=== PATIENT | male | born 2005 | race Caucasian/White ===

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

== ENCOUNTER 2024-09-20 10:59 | Emergency (ER) | payer OTHER ==
--- NOTE | 2024-09-20 11:02 | ERPHSYRPT ---
- History of Present Illness Time Seen by Provider: 09/20/24 11:01 Source: patient, family Exam Limitations: no limitations Physician History: This is an overweight 19-year-old white male patient of Dr. Graff who presents by private vehicle secondary to suicidal thoughts that began yesterday. He states that he had a single episode of cutting of his wrist but stopped because he knew that that was not the right thing to do. He was having worsening symptoms today at work and his boss brought him to be evaluated. Patient denies a plan at this time. He has never been to the emergency room because of suicidal thoughts although he has had suicidal thoughts in the past. Patient denies headache. Patient denies chest pain. Patient denies shortness of breath. Patient denies abdominal pain. Patient has a history of depression, anxiety, hypertension and bipolar disorder. Timing/Duration: yesterday Severity of Symptoms-Max: moderate Severity of Symptoms-Current: moderate Context related to: living circumstances Associated Symptoms: anxiety, depressed, suicidal ideation, No hallucinating, No insomnia Previous symptoms: same symptoms as today, no recent treatment Allergies/Adverse Reactions: coconut Allergy (Severe, Verified 09/20/24 11:10) Swelling of Tongue and Lips Home Medications: ARIPiprazole [Aripiprazole] 10 mg PO DAILY 09/16/23 [History] Emtricitabine/Tenofov Alafenam [Descovy 200-25 mg Tablet] 1 tab PO DAILY 09/16/23 [History] Trazodone HCl 50 mg [Desyrel 50 mg] 50 mg PO HS 09/20/24 [History] Hx Tetanus, Diphtheria Vaccination/Date Given: Yes Hx Influenza Vaccination/Date Given: Yes Hx Pneumococcal Vaccination/Date Given: No Travel Risk - International Travel Have you traveled outside of the country in past 3 weeks: No - Emerging Infectious Disease Are you exhibiting symptoms associated with any current EIDs: No - Past Medical History Pertinent Past Medical History: Yes Neurological History: Migraines ENT History: Other Cardiac History: Hypertension Respiratory History: Asthma Endocrine Medical History: Liver Disease Musculoskeletal History: No Pertinent History GI Medical History: No Pertinent History History: No Pertinent History Psycho-Social History: Depression Male Reproductive Disorders: No Pertinent History Other Medical History: SEASONAL ALLERGIES, Fatty liver on ultrasound in 2021, NASC, 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 - Past Surgical History Past Surgical History: No Neuro Surgical History: No Pertinent History Cardiac: No Pertinent History Respiratory: No Pertinent History Gastrointestinal: No Pertinent History Genitourinary: No Pertinent History Musculoskeletal: No Pertinent History Male Surgical History: No Pertinent History Significant Family History: no pertinent family hx - Social History Smoking Status: Never smoker Exposure to second hand smoke: No Drug Use: none Patient Lives Alone: No - Review of Systems Constitutional: No Symptoms Eyes: No Symptoms Ears, Nose, & Throat: No Symptoms Respiratory: No Symptoms Cardiac: No Symptoms Abdominal/Gastrointestinal: No Symptoms Genitourinary Symptoms: No Symptoms Musculoskeletal: No Symptoms Skin: No Symptoms Neurological: No Symptoms Psychological: Anxiety, Depression, Suicidal Ideations, No Homicidal Ideations, No Hallucinations Endocrine: No Symptoms Hematologic/Lymphatic: No Symptoms Immunological/Allergic: No Symptoms All Other Systems: Reviewed and Negative - Nursing Vital Signs Nursing Vital Signs: Initial Vital Signs Blood Pressure 148/94 09/20/24 11:07 O2 Sat by Pulse Oximetry 98 09/20/24 11:07 Pain Scale Pain Intensity 0 - Physical Exam General Appearance: no apparent distress, alert, anxiety, obese Eyes, Ears, Nose, Throat Exam: normal ENT inspection, moist mucous membranes Neck Exam: normal inspection, non-tender, supple, full range of motion Respiratory Exam: normal breath sounds, lungs clear, airway intact, No chest tenderness, No respiratory distress Cardiovascular Exam: regular rate/rhythm, normal heart sounds, normal peripheral pulses Gastrointestinal/Abdominal Exam: soft, normal bowel sounds, No tenderness Current Suicidality: denies suicide plan Neurological Exam: alert, 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, 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, 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, anxious, depressed affect Appearance: appropriate appearance, appropriate insight, no memory impairment Behavior/Eye Contact/Speech: alert & cooperative, cooperative, good eye contact, normal speech Thoughts/Hallucinations: normal thought pattern, no apparent hallucination Skin Exam: normal color, warm, dry SpO2 Interpretation: normal O2 Delivery: Room Air - Course Nursing assessment & vital signs reviewed: Yes Ordered Tests: Active Orders 24 hr Category Date Time Status Library Circulation Department Chief STAT Care 09/20/24 11:03 Active EKG-ER Only STAT Care 09/20/24 11:02 Active ACETAMINOPHEN Stat Lab 09/20/24 11:25 Completed CBC W DIFF Stat Lab 09/20/24 11:25 Completed CMP Stat Lab 09/20/24 11:25 Completed ETHYL ALCOHOL Stat Lab 09/20/24 11:25 Completed SALICYLATE Stat Lab 09/20/24 11:25 Completed UA W/RFX UR CULTURE Stat Lab 09/20/24 11:02 Completed Urine Triage Profile Stat Lab 09/20/24 11:03 Completed Lab/Rad Data: Laboratory Result Diagrams 09/20/24 11:25 09/20/24 11:25 Laboratory Results 09/20/24 09/20/24 09/20/24 Range/Units 11:35 11:25 11:25 WBC 8.6 (4.23-9.07) x10^3/uL RBC 5.31 (4.63-6.08) x10^6/uL Hgb 15.2 (13.7-17.5) g/dL Hct 45.4 (40.1-51.0) % MCV 85.5 (79.0-92.2) fL MCH 28.6 (25.7-32.2) pg MCHC 33.5 (32.3-36.5) g/dL RDW 13.6 (11.6-14.4) % Plt Count 314 (163-337) x10^3/uL MPV 10.5 (9.4-12.4) fL Gran % 71.0 H (34.0-67.9) % Immature Gran % (Auto) 0.6 H (0.001-0.429) % Nucleat RBC Rel Count 0.0 (0.00-0.2) % Eos # (Auto) 0.03 L (0.04-0.54) x10^3/uL Immature Gran # (Auto) 0.05 H (0.001-0.031) x10^3u/L Absolute Lymphs (auto) 1.78 (1.32-3.57) x10^3/uL Absolute Monos (auto) 0.55 (0.30-0.82) x10^3/uL Absolute Nucleated RBC 0.00 (0.00-0.012) x10^3u/L Lymphocytes % 20.8 L (21.8-53.1) % Monocytes % 6.4 (5.3-12.2) % Eosinophils % 0.4 L (0.8-7.0) % Basophils % 0.8 (0.2-1.2) % Absolute Granulocytes 6.07 H (1.78-5.38) x10^3/uL Basophils # 0.07 (0.01-0.08) x10^3/uL Sodium 141 (135-145) mmol/L Potassium 4.1 (3.5-5.1) mmol/L Chloride 107 (98-107) mmol/L Carbon Dioxide 23 (22-30) mmol/L Anion Gap 14.8 (5-15) MEQ/L BUN 13 (9-20) mg/dL Creatinine 0.90 (0.66-1.25) mg/dL Estimated GFR 125.4 ML/MIN Glucose 108 H (74-106) mg/dL Calcium 10.0 (8.4-10.2) mg/dL Total Bilirubin 0.90 (0.2-1.3) mg/dL AST 65 H (17-59) U/L ALT 88 H (0-50) U/L Alkaline Phosphatase 40 (38-126) U/L Serum Total Protein 8.8 H (6.3-8.2) g/dL Albumin 5.2 H (3.5-5.0) g/dL Urine Color (Yellow) Urine Appearance (Clear) Urine pH (4.6-8.0) Ur Specific [place] (1.005-1.030) Urine Protein (Negative) Urine Glucose (UA) (Negative) mg/dL Urine Ketones (Negative) Urine Blood (Negative) Urine Nitrite (Negative) Urine Bilirubin (Negative) Urine Urobilinogen (0.2) mg/dL Ur Leukocyte Esterase (Negative) U Hyaline Cast (Auto) (0-2) /LPF Urine Microscopic RBC (0-5) /HPF Urine Microscopic WBC (0-5) /HPF Ur Epithelial Cells (None Seen) /HPF Urine Bacteria (None Seen) /HPF Urine Culture Reflexed (NO) Salicylates < 1.0 L (2-20) mg/dL Urine Opiates Level (NEGATIVE) Ur Methadone (NEGATIVE) Acetaminophen < 10 L (10-30) ug/ml Urine Barbiturates (NEGATIVE) Ur Phencyclidine (PCP) (NEGATIVE) Urine Amphetamine (NEGATIVE) U Benzodiazepine Level (NEGATIVE) Urine Cocaine (NEGATIVE) Urine Marijuana (THC) (NEGATIVE) Ethyl Alcohol < 10 (0-10) mg/dL Influenza Type A Ag NEGATIVE (NEGATIVE) Influenza Type B Ag NEGATIVE (NEGATIVE) RSV (PCR) NEGATIVE (NEGATIVE) SARS-CoV-2 (PCR) NEGATIVE (NEGATIVE) 09/20/24 09/20/24 Range/Units 11:03 11:02 WBC (4.23-9.07) x10^3/uL RBC (4.63-6.08) x10^6/uL Hgb (13.7-17.5) g/dL Hct (40.1-51.0) % MCV (79.0-92.2) fL MCH (25.7-32.2) pg MCHC (32.3-36.5) g/dL RDW (11.6-14.4) % Plt Count (163-337) x10^3/uL MPV (9.4-12.4) fL Gran % (34.0-67.9) % Immature Gran % (Auto) (0.001-0.429) % Nucleat RBC Rel Count (0.00-0.2) % Eos # (Auto) (0.04-0.54) x10^3/uL Immature Gran # (Auto) (0.001-0.031) x10^3u/L Absolute Lymphs (auto) (1.32-3.57) x10^3/uL Absolute Monos (auto) (0.30-0.82) x10^3/uL Absolute Nucleated RBC (0.00-0.012) x10^3u/L Lymphocytes % (21.8-53.1) % Monocytes % (5.3-12.2) % Eosinophils % (0.8-7.0) % Basophils % (0.2-1.2) % Absolute Granulocytes (1.78-5.38) x10^3/uL Basophils # (0.01-0.08) x10^3/uL Sodium (135-145) mmol/L Potassium (3.5-5.1) mmol/L Chloride (98-107) mmol/L Carbon Dioxide (22-30) mmol/L Anion Gap (5-15) MEQ/L BUN (9-20) mg/dL Creatinine (0.66-1.25) mg/dL Estimated GFR ML/MIN Glucose (74-106) mg/dL Calcium (8.4-10.2) mg/dL Total Bilirubin (0.2-1.3) mg/dL AST (17-59) U/L ALT (0-50) U/L Alkaline Phosphatase (38-126) U/L Serum Total Protein (6.3-8.2) g/dL Albumin (3.5-5.0) g/dL Urine Color Dark Yellow (Yellow) Urine Appearance Clear (Clear) Urine pH 5.5 (4.6-8.0) Ur Specific [place] >=1.030 A (1.005-1.030) Urine Protein 30 (Negative) Urine Glucose (UA) Negative (Negative) mg/dL Urine Ketones Trace A (Negative) Urine Blood Negative (Negative) Urine Nitrite Negative (Negative) Urine Bilirubin Small A (Negative) Urine Urobilinogen 1.0 A (0.2) mg/dL Ur Leukocyte Esterase Negative (Negative) U Hyaline Cast (Auto) 3-5 A (0-2) /LPF Urine Microscopic RBC 0-2 (0-5) /HPF Urine Microscopic WBC 0-2 (0-5) /HPF Ur Epithelial Cells None Seen (None Seen) /HPF Urine Bacteria None Seen (None Seen) /HPF Urine Culture Reflexed NO (NO) Salicylates (2-20) mg/dL Urine Opiates Level NEGATIVE (NEGATIVE) Ur Methadone NEGATIVE (NEGATIVE) Acetaminophen (10-30) ug/ml Urine Barbiturates NEGATIVE (NEGATIVE) Ur Phencyclidine (PCP) NEGATIVE (NEGATIVE) Urine Amphetamine NEGATIVE (NEGATIVE) U Benzodiazepine Level NEGATIVE (NEGATIVE) Urine Cocaine NEGATIVE (NEGATIVE) Urine Marijuana (THC) POSITIVE A (NEGATIVE) Ethyl Alcohol (0-10) mg/dL Influenza Type A Ag (NEGATIVE) Influenza Type B Ag (NEGATIVE) RSV (PCR) (NEGATIVE) SARS-CoV-2 (PCR) (NEGATIVE) - Progress Progress: unchanged Progress Note: 09/20/24 12:04 My medical decision making and the assignment of moderate complexity to this patient's medical issue today is based on review of the patient's past medical history, review the patient's medication list, reviewed patient drug allergy list, history present illness and physical findings on examination. The workup in this patient includes salicylate level, acetaminophen level, alcohol level, urinalysis, urine drug triage, CBC, CMP, twelve-lead EKG Differential diagnosis includes but not limited to anxiety, depression, suicidal ideation 09/20/24 14:26 I interpreted the patient's laboratory data results. Based on the laboratory data results, the patient does not have any acute, emergent medical issue. The patient is admitted to [facility] after they reviewed the patient's chart and laboratory data results. Counseled pt/family regarding: lab results, diagnosis Medical Desision Making - Diagnostic Testing Diagnostic test were ordered, analyzed, and reviewed by me: Yes - Risk of complications The pt has a high risk of morbidity or mortality based on: Decision regarding hospitilization or escalation of hosp level of care - Departure Departure Disposition: Transfer Clinical Impression: Suicidal ideation Condition: Stable Critical Care Time: No Referrals: CAYLA GRAFF DO [Primary Care Provider] - Follow up/PCP as directed
[2024-09-20 11:27] VITALS: TEMP 98
[2024-09-20 11:35] LABS: Absolute Neutrophil Ct (ANC) 6.07 x10^3/uL (1.78-5.38); BASOPHIL % 0.8 % (0.2-1.2); Basophil (Absolute #) 0.07 x10^3/uL (0.01-0.08); Eosinophil % 0.4 % (0.8-7.0); Eosinophil (Absolute #) 0.03 x10^3/uL (0.04-0.54); Hematocrit 45.4 % (40.1-51.0); Hemoglobin 15.2 g/dL (13.7-17.5); IMMATURE GRAN # 0.05 x10^3u/L (0.001-0.031); IMMATURE GRAN % 0.6 % (0.001-0.429); Lymphocyte (Absolute #) 1.78 x10^3/uL (1.32-3.57); Lymphocytes % 20.8 % (21.8-53.1); Mean Cell Volume 85.5 fL (79.0-92.2); Mean Corpuscular Hemoglobin 28.6 pg (25.7-32.2); Mean Corpuscular Hgb Concent. 33.5 g/dL (32.3-36.5); Mean Platelet Volume 10.5 fL (9.4-12.4); Monocyte (Absolute #) 0.55 x10^3/uL (0.30-0.82); Monocytes % 6.4 % (5.3-12.2); Platelet Count 314 x10^3/uL (163-337); Red Blood Count 5.31 x10^6/uL (4.63-6.08); Red Cell Distribution Width 13.6 % (11.6-14.4); White Blood Count 8.6 x10^3/uL (4.23-9.07)
[2024-09-20 11:42] LABS: ACETAMINOPHEN < 10 ug/ml (10-30); ALBUMIN 5.2 g/dL (3.5-5.0); ALKALINE PHOSPHATASE 40 U/L (38-126); ANION GAP 14.8 MEQ/L (5-15); BLOOD UREA NITROGEN 13 mg/dL (9-20); CHLORIDE 107 mmol/L (98-107); Carbon Dioxide 23 mmol/L (22-30); EST GLOMERULAR FILTRATION RATE 125.4 ML/MIN; ETHYL ALCOHOL < 10 mg/dL (0-10); Glucose 108 mg/dL (74-106); Potassium 4.1 mmol/L (3.5-5.1); SALICYLATE < 1.0 mg/dL (2-20); SGOT/AST 65 U/L (17-59); SGPT/ALT 88 U/L (0-50); SODIUM 141 mmol/L (135-145); Total Protein 8.8 g/dL (6.3-8.2)
[2024-09-20 11:53] LABS: Appearance Clear (Clear); Bacteria None Seen /HPF (None Seen); Bilirubin Small (Negative); Blood Negative (Negative); Epithelial Cells None Seen /HPF (None Seen); Glucose, Urine Negative (Negative); Ketones Trace (Negative); Leukocyte Esterase Negative (Negative); Nitrite Negative (Negative); Ph 5.5 (4.6-8.0); Protein,Urine Dip 30 (Negative); RBC 0-2 /HPF (0-5); Specific Gravity >=1.030 (1.005-1.030); WBC 0-2 /HPF (0-5)
[2024-09-20 12:01] VITALS: RESP 18
[2024-09-20 12:12] LABS: Amphetamine,Urine NEGATIVE (NEGATIVE); Barbiturate,Urine NEGATIVE (NEGATIVE); Benzodiazepine,Urine NEGATIVE (NEGATIVE); Cocaine,Urine NEGATIVE (NEGATIVE); Methadone,Urine NEGATIVE (NEGATIVE); Opiate,Urine NEGATIVE (NEGATIVE); PCP,Urine NEGATIVE (NEGATIVE); THC,Urine POSITIVE (NEGATIVE)
[2024-09-20 12:14] LABS: INFLUENZA A NEGATIVE (NEGATIVE); INFLUENZA B NEGATIVE (NEGATIVE); RESPIRATORY SYNCTIAL VIRUS NEGATIVE (NEGATIVE); SARS-CoV-2 Xpert Express NEGATIVE (NEGATIVE)
[2024-09-20 16:20] VITALS: BP 117/67; PULSE 80; O2SAT 97
== END 2024-09-20 16:15 ==
LOC: ED 10:59
DX: R45.851 Suicidal ideations (principal); I10 Essential (primary) hypertension; Z79.899 Other long term (current) drug therapy
CPT/HCPCS: 0241U; 36415; 80053; 80143; 80179; 80307; 81001; 82077; 85025; 93005; 99285; Q3014; 99284

== ENCOUNTER 2025-06-16 07:02 | Emergency (ER) | payer BC ==
[2025-06-16 07:18] VITALS: TEMP 98.2
[2025-06-16 07:34] LABS: BASOPHIL % 0.6 % (0.2-1.2); Basophil (Absolute #) 0.05 x10^3/uL (0.01-0.08); Eosinophil (Absolute #) 0.11 x10^3/uL (0.04-0.54); Hematocrit 46.2 % (40.1-51.0); Hemoglobin 15.7 g/dL (13.7-17.5); IMMATURE GRAN # 0.04 x10^3u/L (0.001-0.031); IMMATURE GRAN % 0.5 % (0.001-0.429); Lymphocyte (Absolute #) 2.63 x10^3/uL (1.32-3.57); Mean Corpuscular Hemoglobin 28.6 pg (25.7-32.2); Mean Corpuscular Hgb Concent. 34.0 g/dL (32.3-36.5); Monocyte (Absolute #) 0.68 x10^3/uL (0.30-0.82); NUCLEATED RBC # 0.00 x10^3u/L (0.00-0.012); NUCLEATED RBC % 0.0 % (0.00-0.2); Platelet Count 331 x10^3/uL (163-337); Red Blood Count 5.49 x10^6/uL (4.63-6.08); White Blood Count 8.4 x10^3/uL (4.23-9.07)
--- NOTE | 2025-06-16 07:41 | ERPHSYRPT ---
- History of Present Illness Time Seen by Provider: 06/16/25 07:05 Historian: patient Exam Limitations: no limitations Patient Subjective Stated Complaint: woke up this morning 0630. states that he has a line in the upper left chest that only hurts upon inspiration. patient does not feel like he is getting enough oxygen, Triage Nursing Assessment: patient ambulates per self. c/o non radiating chest pain upon inspiration. afebrile. 02 100% on RA. EKG obtained. vitals WNL skin P/D/W. Resp even and non labored. Physician History: This is an obese 20-year-old white male patient who presents to the emergency room by private vehicle accompanied by family/friend and whose primary care provider is Dr. Graff with the complaint of left upper chest pain. The patient states that the pain started this morning. It is a vertical line of pain that is sharp and worsens with inspiration. Patient has a history of histoplasmosis and is a [employer] and he entered a COVID-positive facility yesterday. He has not had a fever. He has not had a cough. He has no history of coronary artery disease, no history of fevers, no history of hemoptysis, no history of calf pain. Timing/Duration: today Quality: burning, sharpness Location: other (Left anterior chest) Chest Pain Radiation: no radiation Severity of Pain-Max: mild Modifying Factors: Improves With: nothing Associated Symptoms: denies symptoms Prior Chest Pain/Cardiac Workup: no prior chest pain, no prior cardiac workup Nitro Today/Relief: no nitro taken today Aspirin Treatment Today: no aspirin today, 81 mg x 4, provided by ED Allergies/Adverse Reactions: coconut Allergy (Severe, Verified 09/20/24 11:10) Swelling of Tongue and Lips Home Medications: Albuterol Sulfate [Proair Digihaler] 7 gm Q4H PRN PRN 06/16/25 [History] Fluticasone/Umeclidin/Vilanter [Trelegy Ellipta 100-62.5-25] 50 mg Q6HPRN PRN 06/16/25 [History] Hx Tetanus, Diphtheria Vaccination/Date Given: Yes Hx Influenza Vaccination/Date Given: No Hx Pneumococcal Vaccination/Date Given: No Immunizations Up to Date: Yes Travel Risk - International Travel Have you traveled outside of the country in past 3 weeks: No - Emerging Infectious Disease Are you exhibiting symptoms associated with any current EIDs: No - Review of Systems Constitutional: No Symptoms Eyes: No Symptoms Ears, Nose, & Throat: No Symptoms Respiratory: No Symptoms Cardiac: Chest Pain Abdominal/Gastrointestinal: No Symptoms Genitourinary Symptoms: No Symptoms Musculoskeletal: No Symptoms Skin: No Symptoms Neurological: No Symptoms Psychological: No Symptoms Endocrine: No Symptoms Hematologic/Lymphatic: No Symptoms Immunological/Allergic: No Symptoms All Other Systems: Reviewed and Negative - Past Medical History Pertinent Past Medical History: Yes Neurological History: Migraines ENT History: Other Cardiac History: Hypertension Respiratory History: Asthma Endocrine Medical History: Liver Disease Musculoskeletal History: No Pertinent History GI Medical History: No Pertinent History History: No Pertinent History Psycho-Social History: Depression Male Reproductive Disorders: No Pertinent History Other Medical History: SEASONAL ALLERGIES, Fatty liver on ultrasound in 2021, NASC, 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 2023 - Past Surgical History Past Surgical History: No Neuro Surgical History: No Pertinent History Cardiac: No Pertinent History Respiratory: No Pertinent History Gastrointestinal: No Pertinent History Genitourinary: No Pertinent History Musculoskeletal: No Pertinent History Male Surgical History: No Pertinent History Significant Family History: no pertinent family hx - Social History Smoking Status: Current every day smoker How long have you smoked: 1 year Drug Use: none - Social Determinants of Health Will the patient participate in the screening: Declined to provide Do you worry about a steady place to live?: No Do you have any problems with any of the following?: No known problems In the past 12 months,have you had to go without utilities?: No Transportation Issues: No Has anyone in your support network made you feel unsafe?: No Have you or anyone in your house had to go w/o enough food: No - Nursing Vital Signs Nursing Vital Signs: Initial Vital Signs Temperature 98.2 F 06/16/25 07:03 Pulse Rate 88 06/16/25 07:03 Respiratory Rate 20 06/16/25 07:03 Blood Pressure 151/99 06/16/25 07:03 O2 Sat by Pulse Oximetry 99 06/16/25 07:03 Pain Scale Pain Intensity 6 - Physical Exam General Appearance: no apparent distress, alert, anxiety Eye Exam: PERRL/EOMI, eyes nml inspection Ears, Nose, Throat Exam: normal ENT inspection, moist mucous membranes Neck Exam: normal inspection, non-tender, supple, full range of motion Respiratory Exam: normal breath sounds, chest tenderness, lungs clear, airway intact, No respiratory distress Cardiovascular Exam: regular rate/rhythm, normal heart sounds, normal peripheral pulses Gastrointestinal/Abdomen Exam: soft, normal bowel sounds, No tenderness Rectal Exam: not done Back Exam: normal inspection, normal range of motion, decreased range of motion, No CVA tenderness, No vertebral tenderness Extremity Exam: normal inspection, normal range of motion, pelvis stable Neurologic Exam: alert, 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, 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 No acute ischemia present) Ordered Tests: Active Orders 24 hr Category Date Time Status Carpenter Mold STAT Care 06/16/25 07:26 Active EKG-ER Only STAT Care 06/16/25 07:25 Active CHEST 1 VIEW (PORTABLE) Stat Exams 06/16/25 07:25 Taken CBC W DIFF Stat Lab 06/16/25 07:34 Completed CMP Stat Lab 06/16/25 07:34 Completed D-DIMER QUANTITATIVE Stat Lab 06/16/25 07:34 Completed MAGNESIUM Stat Lab 06/16/25 07:34 Completed TROPONIN Q4H Lab 06/16/25 07:34 Completed TROPONIN Q4H Lab 06/16/25 11:30 Ordered TROPONIN Q4H Lab 06/16/25 15:30 Ordered Lab/Rad Data: Laboratory Result Diagrams 06/16/25 07:34 06/16/25 07:34 Laboratory Results 06/16/25 06/16/25 06/16/25 Range/Units 07:40 07:34 07:34 WBC (4.23-9.07) x10^3/uL RBC (4.63-6.08) x10^6/uL Hgb (13.7-17.5) g/dL Hct (40.1-51.0) % MCV (79.0-92.2) fL MCH (25.7-32.2) pg MCHC (32.3-36.5) g/dL RDW (11.6-14.4) % Plt Count (163-337) x10^3/uL MPV (9.4-12.4) fL Gran % (34.0-67.9) % Immature Gran % (Auto) (0.001-0.429) % Nucleat RBC Rel Count (0.00-0.2) % Eos # (Auto) (0.04-0.54) x10^3/uL Immature Gran # (Auto) (0.001-0.031) x10^3u/L Absolute Lymphs (auto) (1.32-3.57) x10^3/uL Absolute Monos (auto) (0.30-0.82) x10^3/uL Absolute Nucleated RBC (0.00-0.012) x10^3u/L Lymphocytes % (21.8-53.1) % Monocytes % (5.3-12.2) % Eosinophils % (0.8-7.0) % Basophils % (0.2-1.2) % Absolute Granulocytes (1.78-5.38) x10^3/uL Basophils # (0.01-0.08) x10^3/uL D-Dimer < 0.19 (0.0-0.50) mg/L Sodium (135-145) mmol/L Potassium (3.5-5.1) mmol/L Chloride (98-107) mmol/L Carbon Dioxide (22-30) mmol/L Anion Gap (5-15) MEQ/L BUN (9-20) mg/dL Creatinine (0.66-1.25) mg/dL Estimated GFR ML/MIN Glucose (74-106) mg/dL Calcium (8.4-10.2) mg/dL Magnesium (1.6-2.3) mg/dL Total Bilirubin (0.2-1.3) mg/dL AST (17-59) U/L ALT (0-50) U/L Alkaline Phosphatase (38-126) U/L Troponin I < 0.012 (0.000-0.033) ng/mL Serum Total Protein (6.3-8.2) g/dL Albumin (3.5-5.0) g/dL Influenza Type A Ag NEGATIVE (NEGATIVE) Influenza Type B Ag NEGATIVE (NEGATIVE) RSV (PCR) NEGATIVE (NEGATIVE) SARS-CoV-2 (PCR) NEGATIVE (NEGATIVE) 06/16/25 06/16/25 Range/Units 07:34 07:34 WBC 8.4 (4.23-9.07) x10^3/uL RBC 5.49 (4.63-6.08) x10^6/uL Hgb 15.7 (13.7-17.5) g/dL Hct 46.2 (40.1-51.0) % MCV 84.2 (79.0-92.2) fL MCH 28.6 (25.7-32.2) pg MCHC 34.0 (32.3-36.5) g/dL RDW 12.2 (11.6-14.4) % Plt Count 331 (163-337) x10^3/uL MPV 11.0 (9.4-12.4) fL Gran % 58.3 (34.0-67.9) % Immature Gran % (Auto) 0.5 H (0.001-0.429) % Nucleat RBC Rel Count 0.0 (0.00-0.2) % Eos # (Auto) 0.11 (0.04-0.54) x10^3/uL Immature Gran # (Auto) 0.04 H (0.001-0.031) x10^3u/L Absolute Lymphs (auto) 2.63 (1.32-3.57) x10^3/uL Absolute Monos (auto) 0.68 (0.30-0.82) x10^3/uL Absolute Nucleated RBC 0.00 (0.00-0.012) x10^3u/L Lymphocytes % 31.2 (21.8-53.1) % Monocytes % 8.1 (5.3-12.2) % Eosinophils % 1.3 (0.8-7.0) % Basophils % 0.6 (0.2-1.2) % Absolute Granulocytes 4.92 (1.78-5.38) x10^3/uL Basophils # 0.05 (0.01-0.08) x10^3/uL D-Dimer (0.0-0.50) mg/L Sodium 140 (135-145) mmol/L Potassium 4.3 (3.5-5.1) mmol/L Chloride 109 H (98-107) mmol/L Carbon Dioxide 21 L (22-30) mmol/L Anion Gap 13.7 (5-15) MEQ/L BUN 12 (9-20) mg/dL Creatinine 0.86 (0.66-1.25) mg/dL Estimated GFR 126.3 ML/MIN Glucose 111 H (74-106) mg/dL Calcium 9.9 (8.4-10.2) mg/dL Magnesium 2.0 (1.6-2.3) mg/dL Total Bilirubin 0.60 (0.2-1.3) mg/dL AST 37 (17-59) U/L ALT 59 H (0-50) U/L Alkaline Phosphatase 56 (38-126) U/L Troponin I (0.000-0.033) ng/mL Serum Total Protein 8.2 (6.3-8.2) g/dL Albumin 5.1 H (3.5-5.0) g/dL Influenza Type A Ag (NEGATIVE) Influenza Type B Ag (NEGATIVE) RSV (PCR) (NEGATIVE) SARS-CoV-2 (PCR) (NEGATIVE) - Progress Progress: improved, re-examined Air Movement: good Progress Note: 06/16/25 07:39 My medical decision making and the assignment of moderate complexity of this patient's medical issue today is based on review of the patient's past medical history, reviewed patient's medication list, reviewed patient drug allergy list, history present illness and physical findings on examination. The workup in this patient includes providing the patient with 4 baby aspirin chewable, CBC, CMP, magnesium level, twelve-lead EKG, troponin level, D-dimer level and chest x-ray. Differential diagnosis includes was not limited to anxiety about health, chest pain, musculoskeletal pain, pulmonary embolus, pulmonary infiltrate 06/16/25 07:55 I interpreted the preliminary chest x-ray report. There is no evidence of any acute cardiopulmonary process. 06/16/25 08:47 I interpreted the patient's laboratory data results. Based on laboratory data results, there are no acute, emergent medical issues. 06/16/25 08:47 Patient's heart score is low (less than 4) Blood Culture(s) Obtained: No Antibiotics given: No Counseled pt/family regarding: lab results, diagnosis, need for follow-up, rad results Medical Desision Making - Independent Historian Additional History obtained from: Relative/friend - Risk of complications Low Risk: Low risk of morbidity from additional dx testing or treatment - Departure Departure Disposition: Home Clinical Impression: Nonspecific chest pain Condition: Stable Critical Care Time: No Referrals: CAYLA GRAFF DO [Primary Care Provider, [facility]] - Follow up/PCP as directed Additional Instructions: Drink plenty of fluids. Take your medication as prescribed. Call your primary care provider today, 06/16/2025, to make arrangements for follow-up appointment for further evaluation management Forms: Work/School Release Form
[2025-06-16 07:46] LABS: Calcium 9.9 mg/dL (8.4-10.2); Carbon Dioxide 21.0 mmol/L (22-30); Creatinine 1 0.86 mg/dL (0.66-1.25); EST GLOMERULAR FILTRATION RATE 126.3 ML/MIN; Glucose 111.0 mg/dL (74-106); Potassium 4.3 mmol/L (3.5-5.1); SGOT/AST 37.0 U/L (17-59); SGPT/ALT 59.0 U/L (0-50); Total Protein 8.2 g/dL (6.3-8.2)
[2025-06-16 08:26] LABS: INFLUENZA A NEGATIVE (NEGATIVE); INFLUENZA B NEGATIVE (NEGATIVE); RESPIRATORY SYNCTIAL VIRUS NEGATIVE (NEGATIVE); SARS-CoV-2 Xpert Express NEGATIVE (NEGATIVE)
[2025-06-16 08:49] VITALS: O2SAT 98
--- NOTE | 2025-06-16 08:55 | XRAY ---
Indication: Chest pain on inspiration. Comparison: October 17, 2022 Portable chest again demonstrates normal heart, lungs, and bony thorax.
[2025-06-16 09:03] VITALS: BP 157/86; PULSE 83; RESP 16
== END 2025-06-16 09:09 | disposition home or self-care (01) ==
LOC: ED 07:02
DX: R07.9 Chest pain, unspecified (principal); I10 Essential (primary) hypertension; Z79.899 Other long term (current) drug therapy; Z72.0 Tobacco use